=== PATIENT | female | born 2000 | race Two or more races ===

== ENCOUNTER 2023-09-10 17:58 | Inpatient (IN) ==
[2023-09-10] MEDS ORDERED: Lidocaine 1% VIAL 10 MG/ML 30 ML VIAL INJ PRN (18:21)
[2023-09-10] MEDS: Dinoprostone 10 MG VAG.SUPP VAGINAL ONE (19:24)
[2023-09-10 20:18] LABS: Urine Benzodiazepine Screen None Detected (None Detect); Urine Cannabinoids Screen None Detected (None Detect); Urine Opiates Screen None Detected (None Detect)
[2023-09-10 21:23] LABS: ABS Eosinophils 0.1 10^3/uL (0.0-0.5); ABS Lymphocytes 1.4 10^3/uL (1.0-4.8); ABS Monocytes 0.4 10^3/uL (0.0-0.9); ABS Neutrophils 3.9 10^3/uL (1.5-7.6); Eosinophil % 1.4 %; Hematocrit 33.7 % (35-45); Hemoglobin 11.5 g/dL (11.5-14.3); Mean Corpuscular Hemoglobin 29.7 pg (27-33); Mean Corpuscular Hgb Conc 34.2 g/dL (31-36); Mean Corpuscular Volume 86.8 fL (80-97); Mean Platelet Volume 9.4 fL (7.5-11.2); Nucleated Red Blood Cells % 0.1 %/100WBC (0.0-0.8); Platelet Count 214 10^3/uL (150-450); Red Blood Count 3.88 10^6/uL (3.63-4.92); White Blood Count 5.8 10^3/uL (3.8-11.8)
[2023-09-11] MEDS: Lactated Ringers 1000 ml BAG 1,000 ML IV SCH (22:35)
[2023-09-11] MEDS: Oxytocin in LR 20,000 MILLI.UNIT/1,000 ML BAG IV SCH (22:43)
[2023-09-11] MEDS ORDERED: Glycerin ADULT 2.4 gm SUPP PR PRN (23:41)
[2023-09-12] MEDS: Dibucaine 1% OINT 28.35 GM TUBE PR PRN (00:46)
[2023-09-12] MEDS: Witch Hazel PAD JAR TOPICAL PRN (00:46)
[2023-09-12 07:02] LABS: ABS Lymphocytes 1.6 10^3/uL (1.0-4.8); ABS Monocytes 0.9 10^3/uL (0.0-0.9); ABS Neutrophils 8.9 10^3/uL (1.5-7.6); Eosinophil % 0.3 %; Hematocrit 29.3 % (35-45); Hemoglobin 9.9 g/dL (11.5-14.3); Lymphocyte % 13.8 %; Mean Corpuscular Hemoglobin 29.2 pg (27-33); Mean Corpuscular Hgb Conc 33.6 g/dL (31-36); Mean Corpuscular Volume 86.9 fL (80-97); Mean Platelet Volume 9.5 fL (7.5-11.2); Platelet Count 196 10^3/uL (150-450); Red Blood Count 3.38 10^6/uL (3.63-4.92); White Blood Count 11.4 10^3/uL (3.8-11.8)
[2023-09-12] MEDS: Oxytocin in LR 20,000 MILLI.UNIT/1,000 ML BAG IV ONE (08:00)
[2023-09-12] MEDS: Measles, Mumps,Rubella VACC 0.5 ML/VIAL SUBCUT ONE (16:13)
[2023-09-12] MEDS ORDERED: Measles, Mumps,Rubella VACC 0.5 ML/VIAL SUBCUT ONE (17:00)
[2023-09-13 08:42] VITALS: BP 102/55
== END 2023-09-13 13:35 | disposition home or self-care (01) | DRG 560 ==
LOC: MCHOBOUT 17:58 → MCHOB 18:19
PROVIDERS: ADMIT Midwife; ATTEND Midwife